=== PATIENT | female | born 1975 | race Caucasian/White ===

== ENCOUNTER 2021-03-03 19:22 | Inpatient (IN) | payer OTHER, SELFPAY ==
[2021-03-03] MEDS ORDERED: Morphine 4 MG/ML VIAL ONE (19:53)
[2021-03-03] MEDS ORDERED: Ketorolac Tromethamine 30 MG/ML VIAL ONE (19:53)
[2021-03-03] MEDS ORDERED: Dexamethasone 10 MG/ML VIAL ONE (19:53)
[2021-03-03 19:59] LABS: #Monocytes 0.2 10x3/uL (0.0-1.1); #Neutrophils 5.7 10x3/uL (1.5-8.4); %Basophils 0.1 % (0.0-2.0); %Lymphocytes 16.3 % (18.0-47.0); %Monocytes 2.9 % (0.0-10.0); %Neutrophils 80.3 % (40.0-75.0); Hemoglobin 9.2 g/dL (12.0-15.5); Mean Corpuscular HGB CONC 31.1 g/dL (32.0-36.0); Mean Corpuscular Hemoglobin 23.7 pg (27.0-33.0); Mean Corpuscular Volume 76.1 fl (81.6-98.3); Platelet Count 301 10x3/uL (150-450); RBC Distribution Width 15.5 % (11.5-14.5); Red Blood Cell (RBC) Count 3.89 10x6/uL (3.90-5.03); White Blood Cell (WBC) Count 7.1 10x3/uL (3.5-10.5)
[2021-03-03 20:14] LABS: ALT (SGPT) 15 U/L (8-55); AST (SGOT) 28 U/L (5-34); Albumin 3.9 g/dL (3.5-5.0); Alkaline Phosphatase 87 U/L (40-110); Anion Gap 14 mmol/L (10-20); BUN (Urea Nitrogen) 9 mg/dL (7.0-18.7); Bilirubin, Total 0.2 mg/dL (0.2-1.2); Calc. Creatinine Clearance 0 mL/min (70-130); Calcium 9.1 mg/dL (7.8-10.44); Carbon Dioxide 21 mmol/L (22-29); Chloride 103 mmol/L (98-107); Globulin 3.6 g/dL (2.4-3.5); Glucose 128 mg/dL (70-105); Potassium 3.2 mmol/L (3.5-5.1); Protein, Total 7.5 g/dL (6.0-8.3); Sodium 135 mmol/L (136-145)
[2021-03-03] MEDS ORDERED: HumaLOG 300 UNITS/3 ML VIAL SC PRN (22:49)
[2021-03-03] MEDS ORDERED: Calcium Carbonate 500 MG ChewTAB PO PRN (22:49)
[2021-03-03] MEDS ORDERED: Dextrose 50% Abboject 50 ML SYRINGE SLOW IVP PRN (22:49)
[2021-03-03] MEDS ORDERED: Senokot S 8.6-50 MG TAB PO PRN (22:49)
[2021-03-03] MEDS ORDERED: HYDROcodone/Acetaminophen 5/325 mg Tablet PO PRN (22:49)
[2021-03-03] MEDS ORDERED: Ondansetron PF 4 MG/2 ML Vial IVP PRN (22:49)
[2021-03-03] MEDS ORDERED: Dextrose 5% in Water 1,000 ML IV PRN (22:49)
[2021-03-03] MEDS ORDERED: Zolpidem Tartrate 5 MG TAB PO PRN (22:49)
[2021-03-04 01:01] LABS: Bilirubin Neg (Negative); Blood, Urine Negative (Negative); Clarity Clear (Clear); Glucose, Urine (Dipstick) Normal (Negative); Ketone, Urine Negative (Negative); Leukocyte Negative (Negative); Nitrite Negative (Negative); Protein, Urine (Dipstick) 15 mg/dl (Neg-Trace); Specific Gravity, Urine 1.005 (1.002-1.036); Urobilinogen Normal mg/dL (Less than 2); pH, Urine 6.5 (5.0-9.0)
[2021-03-04] MEDS ORDERED: Sodium Chloride 0.9% 500 ML IV SCH (04:15)
[2021-03-04] MEDS ORDERED: Potassium Chloride 20 MEQ TAB PO SCH (04:15)
[2021-03-04 04:19] LABS: #Monocytes 0.1 10x3/uL (0.0-1.1); #Neutrophils 5.2 10x3/uL (1.5-8.4); %Monocytes 1.8 % (0.0-10.0); %Neutrophils 85.9 % (40.0-75.0); Hemoglobin 8.9 g/dL (12.0-15.5); Mean Corpuscular HGB CONC 30.5 g/dL (32.0-36.0); Mean Corpuscular Hemoglobin 23.3 pg (27.0-33.0); Mean Corpuscular Volume 76.4 fl (81.6-98.3); Mean Platelet Volume 9.9 fl (7.4-10.4); Platelet Count 299 10x3/uL (150-450); RBC Distribution Width 15.5 % (11.5-14.5); Red Blood Cell (RBC) Count 3.82 10x6/uL (3.90-5.03)
[2021-03-04 04:53] LABS: ALT (SGPT) 14 U/L (8-55); AST (SGOT) 21 U/L (5-34); Albumin 3.7 g/dL (3.5-5.0); Alkaline Phosphatase 85 U/L (40-110); Anion Gap 14 mmol/L (10-20); BUN (Urea Nitrogen) 10 mg/dL (7.0-18.7); Bilirubin, Total 0.2 mg/dL (0.2-1.2); CRP (Inflammatory) 8.55 mg/dL (= or < 0.5); Calc. Creatinine Clearance 0 mL/min (70-130); Calcium 9.1 mg/dL (7.8-10.44); Carbon Dioxide 22 mmol/L (22-29); Chloride 108 mmol/L (98-107); Globulin 3.5 g/dL (2.4-3.5); Glucose 163 mg/dL (70-105); Iron Binding Capacity, Total 326 mcg/dL (265-497); Magnesium 2.5 mg/dL (1.6-2.6); Potassium 3.8 mmol/L (3.5-5.1); Protein, Total 7.2 g/dL (6.0-8.3); Sodium 140 mmol/L (136-145)
[2021-03-04] MEDS: Ketorolac Tromethamine 30 MG/ML VIAL IVP SCH ×2 (05:00→20:35)
[2021-03-04] MEDS ORDERED: Potassium Chloride 20 MEQ TAB ONE (05:02)
[2021-03-04] MEDS ORDERED: Ketorolac Tromethamine 30 MG/ML VIAL ONE (05:02)
[2021-03-04 05:55] LABS: Iron 9 ug/dL (50-170)
[2021-03-04] MEDS ORDERED: REMDESIVIR 200 MG in Sodium Chloride 0.9% 250 ML 210 ML IV SCH (09:00)
[2021-03-04] MEDS ORDERED: Enoxaparin Sodium 40 MG/0.4 ML SYRINGE SC SCH (09:00)
[2021-03-04 09:02] LABS: Pregnancy Test - Urine (BHCG) Negative (Negative)
[2021-03-04 09:03] LABS: Pregu Control Background? CLEAR/WHITE (CLR/WHITE); Pregu Control Bar Appear? YES (CONTROL BAR); Specific Gravity 1.005 (1.002-1.036)
[2021-03-04] MEDS ORDERED: Benzonatate 100 MG CAP ONE (10:38)
[2021-03-04] MEDS ORDERED: Aspirin Chewable 81 MG TAB ONE (10:38)
[2021-03-04] MEDS ORDERED: Dexamethasone 10 MG/ML VIAL ONE (10:38)
[2021-03-04 11:45] LABS: Hemoglobin A1c 5.6 % (4.0-6.0)
[2021-03-04] MEDS: Benzonatate 100 MG CAP PO SCH ×3 (17:30→20:59)
[2021-03-04 20:13] VITALS: BMI 31.5
[2021-03-04] MEDS: Aspirin 81 mg Enteric Coated Tablet PO SCH (20:34)
[2021-03-04] MEDS: Cholecalciferol 1,000 UNITS (25 MCG) TAB PO SCH (20:34)
[2021-03-04] MEDS: Ascorbic Acid 500 mg Chewable Tablet PO SCH (20:34)
[2021-03-04] MEDS: Zinc Gluconate 50 MG TAB PO SCH (20:35)
[2021-03-04] MEDS: Hydroxychloroquine Sulfate 200 MG TAB PO SCH (20:35)
[2021-03-04] MEDS: Dexamethasone 4 mg/ml Vial SLOW IVP SCH (20:35)
[2021-03-04] MEDS ORDERED: Enoxaparin Sodium 80 MG/0.8 ML SYRINGE SC SCH (21:00)
[2021-03-04] MEDS ORDERED: Promethazine HCl 12.5 MG in Sodium Chloride 0.9% 50 ML IVPB PRN (22:20)
[2021-03-04] MEDS ORDERED: guaiFENesin/Codeine 200 mg/20 mg 10 ml Cup PO PRN (22:21)
[2021-03-05] MEDS: Acetaminophen 325 MG TAB PO PRN (00:05)
[2021-03-05] MEDS: Guaifenesin DM 100-10/5 ML UDCUP PO PRN ×2 (02:20→21:23)
[2021-03-05] MEDS ORDERED: Guaifenesin DM 100-10/5 ML UDCUP ONE (02:20)
[2021-03-05 06:30] LABS: ALT (SGPT) 14 U/L (8-55); AST (SGOT) 21 U/L (5-34); Albumin 3.3 g/dL (3.5-5.0); Alkaline Phosphatase 76 U/L (40-110); Bilirubin, Direct 0.1 mg/dL (0.1-0.3); Bilirubin, Total 0.1 mg/dL (0.2-1.2); Protein, Total 6.5 g/dL (6.0-8.3)
[2021-03-05] MEDS: Aspirin 81 mg Enteric Coated Tablet PO SCH (09:58)
[2021-03-05] MEDS: Benzonatate 100 MG CAP PO SCH ×3 (09:58→21:23)
[2021-03-05] MEDS: Dexamethasone 4 mg/ml Vial SLOW IVP SCH (09:58)
[2021-03-05] MEDS: Cholecalciferol 1,000 UNITS (25 MCG) TAB PO SCH (09:58)
[2021-03-05] MEDS: Ascorbic Acid 500 mg Chewable Tablet PO SCH (09:58)
[2021-03-05] MEDS: Zinc Gluconate 50 MG TAB PO SCH (09:58)
[2021-03-05] MEDS: Hydroxychloroquine Sulfate 200 MG TAB PO SCH ×2 (09:59→10:01)
[2021-03-05] MEDS: Enoxaparin Sodium 80 MG/0.8 ML SYRINGE SC SCH ×2 (10:38→21:23)
[2021-03-05] MEDS: REMDESIVIR 100 MG in Sodium Chloride 0.9% 250 ML 230 ML IV SCH (13:47)
[2021-03-06 05:00] LABS: ALT (SGPT) 12 U/L (8-55); AST (SGOT) 24 U/L (5-34); Albumin 3.3 g/dL (3.5-5.0); Alkaline Phosphatase 79 U/L (40-110); Anion Gap 14 mmol/L (10-20); BUN (Urea Nitrogen) 17 mg/dL (7.0-18.7); Bilirubin, Direct 0.1 mg/dL (0.1-0.3); Bilirubin, Total 0.2 mg/dL (0.2-1.2); Calc. Creatinine Clearance 140 mL/min (70-130); Calcium 9.2 mg/dL (7.8-10.44); Carbon Dioxide 22 mmol/L (22-29); Chloride 111 mmol/L (98-107); Globulin 3.4 g/dL (2.4-3.5); Glucose 96 mg/dL (70-105); Potassium 3.9 mmol/L (3.5-5.1); Protein, Total 6.7 g/dL (6.0-8.3); Sodium 143 mmol/L (136-145)
[2021-03-06 05:45] LABS: #Monocytes 0.5 10x3/uL (0.0-1.1); #Neutrophils 7.2 10x3/uL (1.5-8.4); %Basophils 0.1 % (0.0-2.0); %Lymphocytes 18.7 % (18.0-47.0); %Monocytes 4.8 % (0.0-10.0); %Neutrophils 75.7 % (40.0-75.0); Hemoglobin 8.8 g/dL (12.0-15.5); Mean Corpuscular HGB CONC 30.3 g/dL (32.0-36.0); Mean Corpuscular Hemoglobin 23.3 pg (27.0-33.0); Mean Corpuscular Volume 76.9 fl (81.6-98.3); Mean Platelet Volume 11.1 fl (7.4-10.4); Platelet Count 316 10x3/uL (150-450); RBC Distribution Width 16.1 % (11.5-14.5); Red Blood Cell (RBC) Count 3.77 10x6/uL (3.90-5.03); White Blood Cell (WBC) Count 9.5 10x3/uL (3.5-10.5)
[2021-03-06] MEDS ORDERED: Sodium Chloride 0.9% 250 ML 250 ML IVPB SCH (07:15)
[2021-03-06] MEDS: Enoxaparin Sodium 80 MG/0.8 ML SYRINGE SC SCH ×2 (09:21→21:30)
[2021-03-06] MEDS: Hydroxychloroquine Sulfate 200 MG TAB PO SCH (09:21)
[2021-03-06] MEDS: Dexamethasone 4 mg/ml Vial SLOW IVP SCH ×2 (09:22→21:29)
[2021-03-06] MEDS: Ascorbic Acid 500 mg Chewable Tablet PO SCH (09:22)
[2021-03-06] MEDS: Cholecalciferol 1,000 UNITS (25 MCG) TAB PO SCH (09:22)
[2021-03-06] MEDS: Benzonatate 100 MG CAP PO SCH ×3 (09:22→21:29)
[2021-03-06] MEDS: Aspirin 81 mg Enteric Coated Tablet PO SCH (09:22)
[2021-03-06] MEDS: Zinc Gluconate 50 MG TAB PO SCH (09:22)
[2021-03-06] MEDS: REMDESIVIR 100 MG in Sodium Chloride 0.9% 250 ML 230 ML IV SCH (12:43)
[2021-03-06] MEDS: Guaifenesin DM 100-10/5 ML UDCUP PO PRN (21:30)
[2021-03-07] MEDS: Guaifenesin DM 100-10/5 ML UDCUP PO PRN ×4 (03:23→20:49)
[2021-03-07 05:20] LABS: #Monocytes 0.3 10x3/uL (0.0-1.1); #Neutrophils 7.9 10x3/uL (1.5-8.4); %Basophils 0.1 % (0.0-2.0); %Lymphocytes 13.3 % (18.0-47.0); %Monocytes 2.8 % (0.0-10.0); %Neutrophils 82.9 % (40.0-75.0); Hemoglobin 8.9 g/dL (12.0-15.5); Mean Corpuscular HGB CONC 30.3 g/dL (32.0-36.0); Mean Corpuscular Hemoglobin 23.2 pg (27.0-33.0); Mean Corpuscular Volume 76.6 fl (81.6-98.3); Platelet Count 371 10x3/uL (150-450); RBC Distribution Width 15.7 % (11.5-14.5); Red Blood Cell (RBC) Count 3.84 10x6/uL (3.90-5.03); White Blood Cell (WBC) Count 9.5 10x3/uL (3.5-10.5)
[2021-03-07 05:37] LABS: ALT (SGPT) 15 U/L (8-55); AST (SGOT) 31 U/L (5-34); Albumin 3.4 g/dL (3.5-5.0); Alkaline Phosphatase 80 U/L (40-110); Anion Gap 15 mmol/L (10-20); BUN (Urea Nitrogen) 14 mg/dL (7.0-18.7); Bilirubin, Direct 0.2 mg/dL (0.1-0.3); Bilirubin, Total 0.3 mg/dL (0.2-1.2); Calc. Creatinine Clearance 137 mL/min (70-130); Calcium 9.2 mg/dL (7.8-10.44); Carbon Dioxide 20 mmol/L (22-29); Chloride 110 mmol/L (98-107); Globulin 3.4 g/dL (2.4-3.5); Glucose 138 mg/dL (70-105); Potassium 3.9 mmol/L (3.5-5.1); Protein, Total 6.8 g/dL (6.0-8.3); Sodium 141 mmol/L (136-145)
[2021-03-07] MEDS: Enoxaparin Sodium 80 MG/0.8 ML SYRINGE SC SCH ×2 (09:27→20:48)
[2021-03-07] MEDS: Ascorbic Acid 500 mg Chewable Tablet PO SCH (09:27)
[2021-03-07] MEDS: Aspirin 81 mg Enteric Coated Tablet PO SCH (09:27)
[2021-03-07] MEDS: Zinc Gluconate 50 MG TAB PO SCH (09:27)
[2021-03-07] MEDS: Hydroxychloroquine Sulfate 200 MG TAB PO SCH (09:27)
[2021-03-07] MEDS: Benzonatate 100 MG CAP PO SCH ×3 (09:27→20:48)
[2021-03-07] MEDS: Cholecalciferol 1,000 UNITS (25 MCG) TAB PO SCH (09:27)
[2021-03-07] MEDS: Dexamethasone 4 mg/ml Vial SLOW IVP SCH ×2 (09:27→20:48)
[2021-03-07] MEDS: REMDESIVIR 100 MG in Sodium Chloride 0.9% 250 ML 230 ML IV SCH (13:01)
[2021-03-08 05:36] LABS: #Monocytes 0.6 10x3/uL (0.0-1.1); %Basophils 0.1 % (0.0-2.0); %Lymphocytes 12.1 % (18.0-47.0); %Monocytes 5.4 % (0.0-10.0); %Neutrophils 80.6 % (40.0-75.0); Hemoglobin 9.1 g/dL (12.0-15.5); Mean Corpuscular HGB CONC 30.2 g/dL (32.0-36.0); Mean Corpuscular Volume 76.2 fl (81.6-98.3); Platelet Count 457 10x3/uL (150-450); RBC Distribution Width 15.7 % (11.5-14.5); Red Blood Cell (RBC) Count 3.95 10x6/uL (3.90-5.03); White Blood Cell (WBC) Count 11.1 10x3/uL (3.5-10.5)
[2021-03-08 05:50] LABS: ALT (SGPT) 17 U/L (8-55); AST (SGOT) 22 U/L (5-34); Albumin 3.3 g/dL (3.5-5.0); Alkaline Phosphatase 78 U/L (40-110); Anion Gap 13 mmol/L (10-20); BUN (Urea Nitrogen) 13 mg/dL (7.0-18.7); Bilirubin, Direct 0.2 mg/dL (0.1-0.3); Bilirubin, Total 0.3 mg/dL (0.2-1.2); Calc. Creatinine Clearance 133 mL/min (70-130); Calcium 9.5 mg/dL (7.8-10.44); Carbon Dioxide 23 mmol/L (22-29); Chloride 109 mmol/L (98-107); Globulin 3.5 g/dL (2.4-3.5); Glucose 129 mg/dL (70-105); Potassium 4.1 mmol/L (3.5-5.1); Protein, Total 6.8 g/dL (6.0-8.3); Sodium 141 mmol/L (136-145)
[2021-03-08] MEDS: Ascorbic Acid 500 mg Chewable Tablet PO SCH (10:21)
[2021-03-08] MEDS: Ferrous Gluconate 324 MG TAB PO SCH (10:21)
[2021-03-08] MEDS: Aspirin 81 mg Enteric Coated Tablet PO SCH (10:21)
[2021-03-08] MEDS: Cholecalciferol 1,000 UNITS (25 MCG) TAB PO SCH (10:21)
[2021-03-08] MEDS: Benzonatate 100 MG CAP PO SCH ×3 (10:21→22:21)
[2021-03-08] MEDS: Dexamethasone 4 mg/ml Vial SLOW IVP SCH ×2 (10:21→22:23)
[2021-03-08] MEDS: Enoxaparin Sodium 80 MG/0.8 ML SYRINGE SC SCH ×2 (10:21→22:21)
[2021-03-08] MEDS: Guaifenesin DM 100-10/5 ML UDCUP PO PRN ×2 (10:22→15:30)
[2021-03-08] MEDS: Hydroxychloroquine Sulfate 200 MG TAB PO SCH (10:22)
[2021-03-08] MEDS: Zinc Gluconate 50 MG TAB PO SCH (10:22)
[2021-03-08] MEDS: REMDESIVIR 100 MG in Sodium Chloride 0.9% 250 ML 230 ML IV SCH (13:13)
[2021-03-08] MEDS: Ventolin HFA Inhaler 60 PUFF INHALER INH PRN (23:15)
[2021-03-09] MEDS: Guaifenesin DM 100-10/5 ML UDCUP PO PRN ×4 (01:18→15:45)
[2021-03-09 08:04] LABS: #Monocytes 0.8 10x3/uL (0.0-1.1); #Neutrophils 10.8 10x3/uL (1.5-8.4); %Basophils 0.1 % (0.0-2.0); %Lymphocytes 9.7 % (18.0-47.0); %Monocytes 6.3 % (0.0-10.0); %Neutrophils 82.2 % (40.0-75.0); Mean Corpuscular HGB CONC 29.9 g/dL (32.0-36.0); Mean Corpuscular Volume 76.8 fl (81.6-98.3); Mean Platelet Volume 10.2 fl (7.4-10.4); Platelet Count 479 10x3/uL (150-450); RBC Distribution Width 15.9 % (11.5-14.5); Red Blood Cell (RBC) Count 3.92 10x6/uL (3.90-5.03); White Blood Cell (WBC) Count 13.1 10x3/uL (3.5-10.5)
[2021-03-09 08:27] LABS: ALT (SGPT) 18 U/L (8-55); AST (SGOT) 20 U/L (5-34); Albumin 3.3 g/dL (3.5-5.0); Alkaline Phosphatase 71 U/L (40-110); Anion Gap 13 mmol/L (10-20); BUN (Urea Nitrogen) 14 mg/dL (7.0-18.7); Bilirubin, Total 0.3 mg/dL (0.2-1.2); CRP (Inflammatory) 1.49 mg/dL (= or < 0.5); Calc. Creatinine Clearance 126 mL/min (70-130); Calcium 9.4 mg/dL (7.8-10.44); Carbon Dioxide 25 mmol/L (22-29); Chloride 107 mmol/L (98-107); Globulin 3.1 g/dL (2.4-3.5); Glucose 116 mg/dL (70-105); Potassium 4.1 mmol/L (3.5-5.1); Protein, Total 6.4 g/dL (6.0-8.3); Sodium 141 mmol/L (136-145)
[2021-03-09] MEDS: Dexamethasone 4 mg/ml Vial SLOW IVP SCH (09:08)
[2021-03-09] MEDS: Ferrous Gluconate 324 MG TAB PO SCH (09:09)
[2021-03-09] MEDS: Enoxaparin Sodium 80 MG/0.8 ML SYRINGE SC SCH ×2 (09:09→21:34)
[2021-03-09] MEDS: Benzonatate 100 MG CAP PO SCH ×3 (09:09→21:34)
[2021-03-09] MEDS: Hydroxychloroquine Sulfate 200 MG TAB PO SCH (09:09)
[2021-03-09] MEDS: Cholecalciferol 1,000 UNITS (25 MCG) TAB PO SCH (09:10)
[2021-03-09] MEDS: Zinc Gluconate 50 MG TAB PO SCH (09:10)
[2021-03-09] MEDS: Aspirin 81 mg Enteric Coated Tablet PO SCH (09:10)
[2021-03-09] MEDS: Ascorbic Acid 500 mg Chewable Tablet PO SCH (09:10)
[2021-03-10] MEDS: Guaifenesin DM 100-10/5 ML UDCUP PO PRN (00:59)
[2021-03-10] MEDS: Acetaminophen 325 MG TAB PO PRN (00:59)
[2021-03-10] MEDS: Ventolin HFA Inhaler 60 PUFF INHALER INH PRN (01:20)
[2021-03-10] MEDS: Hydroxychloroquine Sulfate 200 MG TAB PO SCH (08:44)
[2021-03-10 08:45] LABS: #Monocytes 0.7 10x3/uL (0.0-1.1); #Neutrophils 11.6 10x3/uL (1.5-8.4); %Basophils 0.1 % (0.0-2.0); %Eosinophils 0.2 % (0.0-6.0); %Lymphocytes 17.1 % (18.0-47.0); %Monocytes 4.3 % (0.0-10.0); %Neutrophils 76.5 % (40.0-75.0); Hemoglobin 9.3 g/dL (12.0-15.5); Mean Corpuscular HGB CONC 29.3 g/dL (32.0-36.0); Mean Corpuscular Hemoglobin 22.6 pg (27.0-33.0); Mean Corpuscular Volume 77.1 fl (81.6-98.3); Mean Platelet Volume 9.8 fl (7.4-10.4); Platelet Count 489 10x3/uL (150-450); RBC Distribution Width 15.9 % (11.5-14.5); Red Blood Cell (RBC) Count 4.11 10x6/uL (3.90-5.03); White Blood Cell (WBC) Count 15.2 10x3/uL (3.5-10.5)
[2021-03-10] MEDS: Zinc Gluconate 50 MG TAB PO SCH (08:45)
[2021-03-10] MEDS: Aspirin 81 mg Enteric Coated Tablet PO SCH (08:45)
[2021-03-10] MEDS: Cholecalciferol 1,000 UNITS (25 MCG) TAB PO SCH (08:45)
[2021-03-10] MEDS: Ascorbic Acid 500 mg Chewable Tablet PO SCH (08:45)
[2021-03-10] MEDS: Ferrous Gluconate 324 MG TAB PO SCH (08:45)
[2021-03-10] MEDS: Dexamethasone 4 mg/ml Vial SLOW IVP SCH (08:46)
[2021-03-10] MEDS: Enoxaparin Sodium 80 MG/0.8 ML SYRINGE SC SCH (08:46)
[2021-03-10] MEDS: Benzonatate 100 MG CAP PO SCH ×3 (08:46→21:28)
[2021-03-10 09:00] LABS: ALT (SGPT) 17 U/L (8-55); AST (SGOT) 22 U/L (5-34); Albumin 3.3 g/dL (3.5-5.0); Alkaline Phosphatase 78 U/L (40-110); Anion Gap 12 mmol/L (10-20); BUN (Urea Nitrogen) 15 mg/dL (7.0-18.7); Bilirubin, Total 0.4 mg/dL (0.2-1.2); Calc. Creatinine Clearance 128 mL/min (70-130); Calcium 9.2 mg/dL (7.8-10.44); Carbon Dioxide 26 mmol/L (22-29); Chloride 103 mmol/L (98-107); Globulin 3.2 g/dL (2.4-3.5); Glucose 82 mg/dL (70-105); Potassium 3.4 mmol/L (3.5-5.1); Protein, Total 6.5 g/dL (6.0-8.3); Sodium 138 mmol/L (136-145)
[2021-03-10] MEDS: guaiFENesin/Codeine Phosphate 100 mg/10 mg 5 ml UD Cup PO PRN (21:28)
[2021-03-11] MEDS: Aspirin 81 mg Enteric Coated Tablet PO SCH (08:13)
[2021-03-11] MEDS: Hydroxychloroquine Sulfate 200 MG TAB PO SCH (08:13)
[2021-03-11] MEDS: Ascorbic Acid 500 mg Chewable Tablet PO SCH (08:14)
[2021-03-11] MEDS: Cholecalciferol 1,000 UNITS (25 MCG) TAB PO SCH (08:14)
[2021-03-11] MEDS: Zinc Gluconate 50 MG TAB PO SCH (08:14)
[2021-03-11] MEDS: Benzonatate 100 MG CAP PO SCH ×3 (08:14→20:52)
[2021-03-11] MEDS: Enoxaparin Sodium 40 MG/0.4 ML SYRINGE SC SCH (08:14)
[2021-03-11] MEDS: Ferrous Gluconate 324 MG TAB PO SCH (08:14)
[2021-03-11] MEDS: Dexamethasone 4 mg/ml Vial SLOW IVP SCH (08:38)
[2021-03-11 08:41] LABS: Anion Gap 12 mmol/L (10-20); BUN (Urea Nitrogen) 14 mg/dL (7.0-18.7); Calc. Creatinine Clearance 140 mL/min (70-130); Carbon Dioxide 24 mmol/L (22-29); Chloride 105 mmol/L (98-107); Glucose 85 mg/dL (70-105); Potassium 3.4 mmol/L (3.5-5.1); Sodium 138 mmol/L (136-145)
[2021-03-11 08:43] LABS: #Eosinphils 0.1 10x3/uL (0.0-0.5); #Monocytes 0.4 10x3/uL (0.0-1.1); #Neutrophils 10.1 10x3/uL (1.5-8.4); %Basophils 0.1 % (0.0-2.0); %Eosinophils 1.1 % (0.0-6.0); %Lymphocytes 14.5 % (18.0-47.0); %Monocytes 3.4 % (0.0-10.0); Hemoglobin 9.2 g/dL (12.0-15.5); Mean Corpuscular HGB CONC 30.2 g/dL (32.0-36.0); Mean Corpuscular Hemoglobin 22.8 pg (27.0-33.0); Mean Corpuscular Volume 75.7 fl (81.6-98.3); Mean Platelet Volume 10.1 fl (7.4-10.4); Platelet Count 470 10x3/uL (150-450); RBC Distribution Width 16.3 % (11.5-14.5); Red Blood Cell (RBC) Count 4.03 10x6/uL (3.90-5.03); White Blood Cell (WBC) Count 12.8 10x3/uL (3.5-10.5)
[2021-03-11] MEDS ORDERED: Sodium Chloride 0.9% 500 ML IV SCH (08:45)
[2021-03-11] MEDS: guaiFENesin/Codeine Phosphate 100 mg/10 mg 5 ml UD Cup PO PRN (20:52)
[2021-03-12 06:43] LABS: #Eosinphils 0.2 10x3/uL (0.0-0.5); #Monocytes 0.5 10x3/uL (0.0-1.1); #Neutrophils 10.2 10x3/uL (1.5-8.4); %Basophils 0.2 % (0.0-2.0); %Eosinophils 1.3 % (0.0-6.0); %Lymphocytes 12.5 % (18.0-47.0); %Monocytes 3.8 % (0.0-10.0); %Neutrophils 80.6 % (40.0-75.0); Hemoglobin 8.7 g/dL (12.0-15.5); Mean Corpuscular HGB CONC 31.1 g/dL (32.0-36.0); Mean Corpuscular Hemoglobin 23.5 pg (27.0-33.0); Mean Corpuscular Volume 75.5 fl (81.6-98.3); Mean Platelet Volume 10.2 fl (7.4-10.4); Platelet Count 445 10x3/uL (150-450); RBC Distribution Width 16.8 % (11.5-14.5); Red Blood Cell (RBC) Count 3.71 10x6/uL (3.90-5.03); White Blood Cell (WBC) Count 12.6 10x3/uL (3.5-10.5)
[2021-03-12 06:46] LABS: Anion Gap 12 mmol/L (10-20); BUN (Urea Nitrogen) 12 mg/dL (7.0-18.7); Calc. Creatinine Clearance 133 mL/min (70-130); Carbon Dioxide 24 mmol/L (22-29); Chloride 107 mmol/L (98-107); Glucose 89 mg/dL (70-105); Potassium 3.5 mmol/L (3.5-5.1); Sodium 139 mmol/L (136-145)
[2021-03-12] MEDS: Enoxaparin Sodium 40 MG/0.4 ML SYRINGE SC SCH (09:40)
[2021-03-12] MEDS: Hydroxychloroquine Sulfate 200 MG TAB PO SCH (09:41)
[2021-03-12] MEDS: Dexamethasone 4 mg/ml Vial SLOW IVP SCH (09:41)
[2021-03-12] MEDS: Zinc Gluconate 50 MG TAB PO SCH (09:42)
[2021-03-12] MEDS: Ascorbic Acid 500 mg Chewable Tablet PO SCH (09:42)
[2021-03-12] MEDS: Ferrous Gluconate 324 MG TAB PO SCH (09:42)
[2021-03-12] MEDS: Cholecalciferol 1,000 UNITS (25 MCG) TAB PO SCH (09:42)
[2021-03-12] MEDS: Aspirin 81 mg Enteric Coated Tablet PO SCH (09:42)
[2021-03-12] MEDS: Benzonatate 100 MG CAP PO SCH ×3 (09:42→20:49)
[2021-03-13 04:51] LABS: #Eosinphils 0.1 10x3/uL (0.0-0.5); #Monocytes 0.5 10x3/uL (0.0-1.1); #Neutrophils 10.3 10x3/uL (1.5-8.4); %Basophils 0.1 % (0.0-2.0); %Eosinophils 0.7 % (0.0-6.0); %Lymphocytes 10.8 % (18.0-47.0); %Monocytes 3.7 % (0.0-10.0); %Neutrophils 83.2 % (40.0-75.0); Hemoglobin 8.9 g/dL (12.0-15.5); Mean Corpuscular HGB CONC 30.1 g/dL (32.0-36.0); Mean Corpuscular Hemoglobin 23.2 pg (27.0-33.0); Mean Corpuscular Volume 77.1 fl (81.6-98.3); Mean Platelet Volume 10.5 fl (7.4-10.4); Platelet Count 462 10x3/uL (150-450); RBC Distribution Width 17.2 % (11.5-14.5); Red Blood Cell (RBC) Count 3.84 10x6/uL (3.90-5.03); White Blood Cell (WBC) Count 12.4 10x3/uL (3.5-10.5)
[2021-03-13 05:05] LABS: Anion Gap 12 mmol/L (10-20); BUN (Urea Nitrogen) 12 mg/dL (7.0-18.7); Calc. Creatinine Clearance 154 mL/min (70-130); Calcium 8.8 mg/dL (7.8-10.44); Carbon Dioxide 22 mmol/L (22-29); Chloride 109 mmol/L (98-107); Glucose 99 mg/dL (70-105); Potassium 3.5 mmol/L (3.5-5.1); Sodium 139 mmol/L (136-145)
[2021-03-13] MEDS: Benzonatate 100 MG CAP PO SCH ×3 (08:32→22:04)
[2021-03-13] MEDS: Dexamethasone 4 MG TAB PO SCH (08:32)
[2021-03-13] MEDS: Ferrous Gluconate 324 MG TAB PO SCH (08:32)
[2021-03-13] MEDS: Cholecalciferol 1,000 UNITS (25 MCG) TAB PO SCH (08:32)
[2021-03-13] MEDS: Aspirin 81 mg Enteric Coated Tablet PO SCH (08:32)
[2021-03-13] MEDS: Ascorbic Acid 500 mg Chewable Tablet PO SCH (08:33)
[2021-03-13] MEDS: Enoxaparin Sodium 40 MG/0.4 ML SYRINGE SC SCH (08:33)
[2021-03-13] MEDS: Zinc Gluconate 50 MG TAB PO SCH (08:33)
[2021-03-13] MEDS: Hydroxychloroquine Sulfate 200 MG TAB PO SCH (08:33)
[2021-03-13] MEDS: guaiFENesin/Codeine Phosphate 100 mg/10 mg 5 ml UD Cup PO PRN (22:13)
[2021-03-14] MEDS: Enoxaparin Sodium 40 MG/0.4 ML SYRINGE SC SCH (09:41)
[2021-03-14] MEDS: Ascorbic Acid 500 mg Chewable Tablet PO SCH (09:42)
[2021-03-14] MEDS: Aspirin 81 mg Enteric Coated Tablet PO SCH (09:42)
[2021-03-14] MEDS: Dexamethasone 4 MG TAB PO SCH (09:42)
[2021-03-14] MEDS: Cholecalciferol 1,000 UNITS (25 MCG) TAB PO SCH (09:42)
[2021-03-14] MEDS: Zinc Gluconate 50 MG TAB PO SCH (09:43)
[2021-03-14] MEDS: Hydroxychloroquine Sulfate 200 MG TAB PO SCH (09:43)
[2021-03-14] MEDS: Benzonatate 100 MG CAP PO SCH ×3 (09:44→21:30)
[2021-03-14] MEDS: Ferrous Gluconate 324 MG TAB PO SCH (09:44)
[2021-03-15] MEDS: Hydroxychloroquine Sulfate 200 MG TAB PO SCH (09:22)
[2021-03-15] MEDS: Enoxaparin Sodium 40 MG/0.4 ML SYRINGE SC SCH (09:22)
[2021-03-15] MEDS: Ferrous Gluconate 324 MG TAB PO SCH (09:22)
[2021-03-15] MEDS: Benzonatate 100 MG CAP PO SCH ×2 (09:22→17:36)
[2021-03-15] MEDS: Dexamethasone 4 MG TAB PO SCH (09:22)
[2021-03-15] MEDS: Cholecalciferol 1,000 UNITS (25 MCG) TAB PO SCH (09:22)
[2021-03-15] MEDS: Aspirin 81 mg Enteric Coated Tablet PO SCH (09:22)
[2021-03-15] MEDS: Ascorbic Acid 500 mg Chewable Tablet PO SCH (09:22)
[2021-03-15] MEDS: Zinc Gluconate 50 MG TAB PO SCH (09:23)
[2021-03-15 13:54] VITALS: BP 104/53; TEMP 97.8
== END 2021-03-15 18:15 | disposition home or self-care (01) | DRG 177 ==
LOC: CSHERS 19:22 → CSHERHOLD 22:49 → UNDOADMIN 03-04 03:56 → CSHERHOLD 03-04 03:56 → CSHTELE 03-04 15:05
PROVIDERS: ADMIT Student in an Organized Health Care Education/Training Program; ATTEND Hospitalist
PROC: 8E0ZXY6 Isolation (ICD-10-PCS; principal; 2021-03-03)
PROC: XW033E5 Introduction of Remdesivir Anti-infective into Peripheral Vein, Percutaneous Approach, New Technology Group 5 (ICD-10-PCS; 2021-03-03)
DX: U07.1 COVID-19 (principal); J12.82 Pneumonia due to coronavirus disease 2019; J96.01 Acute respiratory failure with hypoxia; M32.9 Systemic lupus erythematosus, unspecified; E87.6 Hypokalemia; D50.9 Iron deficiency anemia, unspecified; R73.9 Hyperglycemia, unspecified; E86.0 Dehydration; E66.9 Obesity, unspecified; Z68.31 Body mass index [BMI] 31.0-31.9, adult
CPT/HCPCS: 36415; 36416; 71045; 71275; 80048; 80053; 80076; 81003; 81025; 82728; 83036; 83540; 83550; 83735; 85025; 85379; 86140; 93005; 93010; 94760; 96374; 96375; J1100; J1650; J1815; J1885; J2270; J7050; J8540